=== PATIENT | male | born 1950 | race African-American/Black ===

== ENCOUNTER 2016-10-26 21:23 | Emergency (ER) | payer OTHER ==
[~2016-10-26] VITALS: Ht 170.2 cm; Wt 63.5 kg
--- NOTE | ~2016-10-26 | EKG ---
[place] [address] [facility] [place] [address] ELECTROCARDIOGRAM REPORT Name: MOSES LANGE Room #: DEP JUAN Mcgee#: [id number] Admission: 10/26/16 Attend Phys: Discharge: 10/27/16 Date of : 48 Report #: [id number] THIS REPORT FOR: //name// [facility] ED Test Date: 2016-10-26 Test Time: 22:07:36 Pat Name: MOSES LANGE Department: Room: [facility] Gender: M Manager Editorial: PARI : 1950 Requested By: Order Number: [id number] MD: Saravanan Tolliver Measurements Intervals [place] Rate: 82 P: 87 CT: 152 QRS: -6 QRSD: 83 T: 43 QT: 392 QTc: 458 Interpretive Statements Sinus rhythm Probable left atrial enlargement No previous ECG available for comparison Electronically Signed On 10-27-2016 16:22:01 CDT by Saravanan Tolliver [email or web address] <ELECTRONICALLY SIGNED> By: Saravanan Tolliver MD 10/27/16 1622 2207 06 Saravanan Tolliver MD /ROME
[2016-10-26 22:22] LABS: ABSOLUTE NEUTROPHILS 1.9 thou/uL (1.4-8.2); EOSINOPHILS 2.1 % (0.0-3.0); HEMOGLOBIN 10.9 gm/dL (14.0-18.0); MCH 28.6 pg (26.0-34.0); MCV 86.8 fL (80.0-100.0); MONOCYTES 10.7 % (1.0-8.0); PLATELET COUNT 226 thou/uL (150-400); POLYS 42.2 % (36.0-66.0); RBC 3.81 mil/uL (4.50-6.00); RDW 13.6 % (10.5-14.5); WBC 4.4 thou/uL (4.0-11.0)
[2016-10-26 22:23] LABS: MANUAL DIFF NO
[2016-10-26 22:31] LABS: CALCIUM 9.3 mg/dL (8.5-10.1); POTASSIUM 3.5 mmol/L (3.5-5.1)
[2016-10-27 00:43] VITALS: BP 143/79
== END 2016-10-27 00:45 | disposition home or self-care (01) ==
LOC: EDBD 21:23 → ER 21:23
PROVIDERS: Emergency Medicine
DX: F03.90 Unspecified dementia, unspecified severity, without behavioral disturbance, psychotic disturbance, mood disturbance, and anxiety (principal)